=== PATIENT | female | born 1960 | race Caucasian/White ===

== ENCOUNTER 2020-10-29 10:54 | Day surgery (SDC) | payer BC, OTHER ==
[2020-10-20 11:58] VITALS: BMI 38.9
[2020-10-29] MEDS ORDERED: EPINEPHrine/PF 1 MG/1 ML (1:1,000) AMPULE ONE (15:54)
[2020-10-29] MEDS ORDERED: ROPIVACAINE HCL 0.5% 30ML VIAL ONE (15:55)
[2020-10-29] MEDS ORDERED: MIDAZOLAM HCL 2 MG/2 ML SINGLE DOSE VIAL ONE ×3 (15:55→20:29)
[2020-10-29] MEDS ORDERED: methylPREDNISolone NA SUCC 40 MG/1 ML VIAL ONE (17:03)
[2020-10-29] MEDS ORDERED: VANCOMYCIN 1,000 MG VIAL (RESTRICTED TO ID ONLY) ONE (17:03)
[2020-10-29] MEDS ORDERED: CEFAZOLIN 2 GM in DEXTROSE 5%-WATER - 50 ML IVPB ONE (17:43)
[2020-10-29] MEDS ORDERED: TRANEXAMIC ACID 1000 MG/10 ML VIAL IVPUSH ONE (17:43)
[2020-10-29] MEDS ORDERED: VANCOMYCIN 1 GM in D5W (PRE-DOCKED) 1,000 MG/250 ML IVPB ONE (17:44)
[2020-10-29] MEDS ORDERED: TRANEXAMIC ACID 1000 MG/10 ML VIAL ONE ×2 (18:12→20:47)
[2020-10-29] MEDS ORDERED: ceFAZolin SODIUM 1 GM VIAL ONE ×2 (18:12→19:49)
[2020-10-29] MEDS ORDERED: PHENYLEPHRINE HCL 10 MG/1 ML SINGLE DOSE VIAL ONE (18:15)
[2020-10-29] MEDS ORDERED: PROPOFOL 20 ML ONE ×2 (18:34→19:40)
[2020-10-29] MEDS ORDERED: oxyCODONE HCL 5 MG TABLET PO PRN (19:18)
[2020-10-29] MEDS ORDERED: PROMETHAZINE HCL 25 MG/1 ML VIAL IVPUSH PRN (19:18)
[2020-10-29] MEDS ORDERED: traMADol HCL 50 MG TABLET PO PRN (19:18)
[2020-10-29] MEDS ORDERED: ONDANSETRON 4 MG/2 ML VIAL IVPUSH PRN (19:18)
[2020-10-29] MEDS ORDERED: KETOROLAC TROMETHAMINE 30 MG/1 ML VIAL ONE (19:42)
[2020-10-29] MEDS ORDERED: ONDANSETRON 4 MG/2 ML VIAL ONE ×2 (19:43→20:18)
[2020-10-29] MEDS ORDERED: SODIUM CHLORIDE 0.9% P/F 10 ML VIAL IJ ONE (19:49)
[2020-10-29] MEDS ORDERED: ACETAMINOPHEN INJECTION 100 ML IVPB ONE (20:48)
[2020-10-29] MEDS ORDERED: MAGNESIUM HYDROX 2400MG/30ML ORAL SUSPENSION 30 ML CUP PO PRN (20:58)
[2020-10-29] MEDS ORDERED: MAG HYDROX/AL HYDROX/SIMETH 30 ML UNIT-DOSE CUP PO PRN (20:58)
[2020-10-29] MEDS ORDERED: LACTATED RINGERS SOLUTION 1,000 ML IV SCH (21:00)
[2020-10-29] MEDS: ACETAMINOPHEN 1000 MG/100 ML VIAL (NON FORMULARY) IVPB ONE (21:05)
[2020-10-29] MEDS: KETOROLAC TROMETHAMINE 30 MG/1 ML VIAL IVPUSH ONE (21:16)
[2020-10-29] MEDS: ONDANSETRON 4 MG/2 ML VIAL IVPUSH PRN (21:20)
[2020-10-30] MEDS: SENNOSIDES/DOCUSATE COMBO (SENNA PLUS) TABLET (UD) PO SCH ×3 (00:01→21:30)
[2020-10-30] MEDS: oxyCODONE HCL 10 MG SUSTAINED ACTING TABLET PO SCH ×3 (00:02→21:33)
[2020-10-30] MEDS: ASPIRIN 81 MG CHEWABLE TABLETS PO SCH ×3 (00:02→21:32)
[2020-10-30] MEDS: LACTATED RINGERS SOLUTION 1,000 ML IV SCH ×2 (00:04→21:31)
[2020-10-30] MEDS: KETOROLAC TROMETHAMINE 30 MG/1 ML VIAL IVPUSH ONE (00:04)
[2020-10-30] MEDS: CEFAZOLIN 2 GM/D5W 2 GM/50 ML ML IVPB SCH ×3 (00:06→12:54)
[2020-10-30] MEDS: ACETAMINOPHEN 325 MG TABLET (FP) PO SCH ×3 (06:03→18:14)
[2020-10-30 08:10] LABS: HEMATOCRIT 30.2 % (32.4-45.2); MCH 25.8 pg (25.7-33.7); MEAN CELL VOLUME 78.3 fl (80-96); MEAN PLT VOLUME 8.7 fl (7.5-11.1); PLATELET COUNT 232 K/MM3 (134-434); RBC 3.86 M/mm3 (3.60-5.2); RDW 14.7 % (11.6-15.6); WHITE BLOOD COUNT 8.4 K/mm3 (4.0-10.8)
[2020-10-30] MEDS: ACETAMINOPHEN 1000 MG/100 ML VIAL (NON FORMULARY) IVPB ONE (08:10)
[2020-10-30 08:15] LABS: CALCIUM 8.6 mg/dl (8.5-10); CREATININE 0.8 mg/dl (0.55-1.3)
[2020-10-30] MEDS: CELECOXIB 200 MG CAPSULE PO SCH ×2 (09:19→21:31)
[2020-10-30] MEDS: PANTOPRAZOLE 40 MG TABLET PO SCH (09:19)
[2020-10-30] MEDS: oxyCODONE HCL 5 MG TABLET PO PRN (18:19)
[2020-10-31] MEDS: ACETAMINOPHEN 325 MG TABLET (FP) PO SCH ×3 (00:39→13:52)
[2020-10-31 06:44] VITALS: PULSE 67
[2020-10-31] MEDS: oxyCODONE HCL 5 MG TABLET PO PRN (07:21)
[2020-10-31 07:54] LABS: HEMATOCRIT 27.5 % (32.4-45.2); HEMOGLOBIN 8.8 GM/dl (10.7-15.3); MCH 25.4 pg (25.7-33.7); MCHC 32.1 g/dl (32.0-36.0); MEAN CELL VOLUME 79.1 fl (80-96); MEAN PLT VOLUME 8.9 fl (7.5-11.1); PLATELET COUNT 191 K/MM3 (134-434); RBC 3.48 M/mm3 (3.60-5.2); RDW 15.6 % (11.6-15.6); WHITE BLOOD COUNT 5.7 K/mm3 (4.0-10.8)
[2020-10-31] MEDS: ONDANSETRON 4 MG/2 ML VIAL IVPUSH PRN (08:21)
[2020-10-31] MEDS: ASPIRIN 81 MG CHEWABLE TABLETS PO SCH (10:19)
[2020-10-31] MEDS: PANTOPRAZOLE 40 MG TABLET PO SCH (10:19)
[2020-10-31] MEDS: CELECOXIB 200 MG CAPSULE PO SCH (10:20)
[2020-10-31] MEDS: SENNOSIDES/DOCUSATE COMBO (SENNA PLUS) TABLET (UD) PO SCH (10:20)
[2020-10-31] MEDS: oxyCODONE HCL 10 MG SUSTAINED ACTING TABLET PO SCH (10:22)
[2020-10-31 14:14] VITALS: BP 100/40; TEMP 98.1
== END 2020-10-31 15:54 | disposition home or self-care (01) ==
LOC: FASU 10:54 → FM/S 22:07 → FASU 10-31 15:54
PROVIDERS: ATTEND Orthopaedic Surgery Orthopaedic Surgery of the Spine
PROC: 0SRB0J9 Replacement of Left Hip Joint with Synthetic Substitute, Cemented, Open Approach (ICD-10-PCS; principal; 2020-10-29 18:38)
DX: M06.852 Other specified rheumatoid arthritis, left hip (principal)
CPT/HCPCS: 27130; C1776; 36415; 73502-TC-LT-FY; 80048; 85027; 88305-TC; 88311-TC; 94760; 97010-GP; 97116-GP; 97162-GP; J0131

== ENCOUNTER 2022-05-07 03:57 | Day surgery (SDC) | payer BC, OTHER ==
[2022-05-06 10:10] VITALS: BMI 40.1
[2022-05-07] MEDS ORDERED: BUPIVACAINE HCL/PF 0.5% (5MG/ML) 10 ML VIAL ONE (07:26)
[2022-05-07] MEDS ORDERED: ONDANSETRON 4 MG/2 ML VIAL ONE (07:31)
[2022-05-07] MEDS ORDERED: DEXAMETHASONE SOD PHOSPHATE 4 MG/1 ML VIAL ONE (07:31)
[2022-05-07] MEDS ORDERED: MIDAZOLAM HCL 2 MG/2 ML SINGLE DOSE VIAL ONE (07:31)
[2022-05-07] MEDS ORDERED: LIDOCAINE HCL/PF 2% SDV 5ML VIAL ONE (07:31)
[2022-05-07] MEDS ORDERED: PROPOFOL 20 ML ONE ×2 (07:31)
[2022-05-07] MEDS ORDERED: SUCCINYLCHOLINE CHLORIDE 200 MG/10 ML SYRINGE ONE (07:33)
[2022-05-07] MEDS ORDERED: ONDANSETRON 4 MG/2 ML VIAL IVPUSH PRN (07:51)
[2022-05-07] MEDS ORDERED: ACETAMINOPHEN 1000 MG/100 ML BAG IVPB ONE ×2 (07:52→09:45)
[2022-05-07] MEDS ORDERED: LACTATED RINGERS SOLUTION 1,000 ML IV SCH (08:00)
[2022-05-07] MEDS ORDERED: ceFAZolin SODIUM 1 GM VIAL IVPB ONE (08:52)
[2022-05-07] MEDS ORDERED: methylPREDNISolone ACET (DEPO) 80 MG/1 ML VIAL ONE (09:17)
[2022-05-07] MEDS ORDERED: methylPREDNISolone ACET (DEPO) 80 MG/1 ML VIAL IM ONE (09:20)
[2022-05-07] MEDS ORDERED: BUPIVACAINE HCL/PF 0.5% (5MG/ML) 10 ML VIAL IJ ONE (09:20)
[2022-05-07] MEDS ORDERED: ACETAMINOPHEN INJECTION 100 ML IVPB ONE (09:40)
[2022-05-07] MEDS ORDERED: predniSONE 5 MG TABLET (UD) PO PRN ×2 (09:54→11:36)
[2022-05-07] MEDS ORDERED: IBUPROFEN 400 MG TABLET (FP) PO PRN ×2 (09:54→11:35)
[2022-05-07] MEDS ORDERED: CHOLECALCIFEROL (VIT D3) 5000 UNITS (125 MCG) CAP PO SCH (10:00)
[2022-05-07] MEDS ORDERED: FOLIC ACID 1 MG TABLET (FP) PO SCH (10:00)
[2022-05-07] MEDS ORDERED: ABATACEPT 125 MG/ML SQ SCH (10:00)
[2022-05-07] MEDS ORDERED: METHOTREXATE 2.5 MG TABLET PO SCH (10:00)
[2022-05-07] MEDS ORDERED: SOLIFENACIN SUCCINATE 5 MG TAB PO SCH (10:00)
[2022-05-07 11:11] VITALS: RESP 18
[2022-05-07 11:50] VITALS: TEMP 97.8
[2022-05-07 14:06] VITALS: BP 132/82; PULSE 67
[2022-05-07] MEDS ORDERED: ATORVASTATIN CA 10 MG TABLET (FP) PO SCH (22:00)
== END 2022-05-07 13:40 | disposition home or self-care (01) ==
LOC: JASU-SURG 03:57
PROVIDERS: ATTEND Orthopaedic Surgery Orthopaedic Surgery of the Spine
PROC: 0SCC4ZZ Extirpation of Matter from Right Knee Joint, Percutaneous Endoscopic Approach (ICD-10-PCS; principal; 2022-05-07 08:00)
DX: M23.41 Loose body in knee, right knee (principal); M23.91 Unspecified internal derangement of right knee; M06.861 Other specified rheumatoid arthritis, right knee
CPT/HCPCS: 94760